=== PATIENT | female | born 1980 | race Caucasian/White ===

== ENCOUNTER 2024-08-17 08:52 | Emergency (ER) | payer OTHER ==
[2024-08-17 09:53] LABS: Specific Gravity 1.018 (1.005-1.030); Sqamous Epithelial <5 /HPF (None Seen); Urine Bacteria <20 /HPF (<20); Urine Bilirubin NEGATIVE (Negative); Urine Blood Trace (Negative); Urine Clarity Extremely Turbid (Clear); Urine Color Yellow (Yellow); Urine Culture Reflex Order REFLEXED; Urine Glucose NEGATIVE (Negative); Urine Ketones NEGATIVE (Negative); Urine Micro Reflex YN NO BILL MICROSCOPIC; Urine Mucus Slight /HPF (None Seen); Urine Nitrite NEGATIVE (Negative); Urine Protein 1+ (Negative); Urine Urobilinogen 2+ (Normal)
--- NOTE | 2024-08-17 11:30 | ER ---
Nurse's Notes [facility] Name: Beronica Beckwith Age: 44 yrs Sex: Female : 1980 Arrival Date: 08/17/2024 Time: 08:52 Bed [id number] Private MD: Diagnosis: Dysuria Presentation: 08/17 09:12 Chief complaint: Right flank pain, fever, headache, chills, and dysuria x 3 weeks. hb Coronavirus screen: At this time, the client does not indicate any symptoms associated with coronavirus-19. Ebola Screen: No symptoms or risks identified at this time. Initial Sepsis Screen: Does the patient meet any 2 criteria? No. Patient's initial sepsis screen is negative. Does the patient have a suspected source of infection? No. Patient's initial sepsis screen is negative. Risk Assessment: Do you want to hurt yourself or someone else? Patient reports no desire to harm self or others. Onset of symptoms was May 2024. 09:12 Method Of Arrival: Ambulatory hb 09:12 Acuity: ENRIKE 3 hb Historical: - Allergies: 09:14 Codeine; hb - PMHx: 09:14 Seizure; Hypothyroidism; hb - PSHx: 09:14 None; hb - Immunization history:: Adult Immunizations up to date. - Infectious Disease History:: Denies. - Social history:: Smoking status: Reported history of juuling and/or vaping. - Family history:: not pertinent. Screenin:15 [facility] ED Fall Risk Assessment (Adult) History of falling in the last 3 months, hb including since admission No falls in past 3 months (0 pts) Confusion or Disorientation No (0 pts) Intoxicated or Sedated No (0 pts) Impaired Gait No (0 pts) Mobility Assist Device Used No (0 pt) Altered Elimination No (0 pt) Score/Fall Risk Level 0 - 2 = Low Risk Oriented to surroundings, Maintained a safe environment, Educated pt \T\ family on fall prevention, incl call for assistance when getting out of bed. Abuse screen: Denies threats or abuse. Denies injuries from another. Nutritional screening: No deficits noted. Tuberculosis screening: No symptoms or risk factors identified. Assessment: 09:15 General: Appears in no apparent distress. Behavior is calm, cooperative. Pain: Pain hb currently is 3 out of 10 on a pain scale. Neuro: Level of Consciousness is awake, alert, obeys commands, Oriented to person, place, time, situation. Cardiovascular: Patient's skin is warm and dry. Respiratory: Respiratory effort is even, unlabored, Respiratory pattern is regular, symmetrical. : Reports dysuria. Vital Signs: 09:12 BP 128 / 68; Pulse 109; Resp 16; Temp 99.1(TE); Pulse Ox 100% on R/A; Weight 68.04 kg; hb Height 5 ft. 9 in. ; Pain 310; 09:12 Body Mass Index 22.15 (68.04 kg, 175.26 cm) hb 09:12 Pain Scale: Adult hb ED Course: 08:59 Patient arrived in ED. mr 08:59 Memo Velasquez MD is Attending Physician. rt 09:14 Triage completed. hb 09:30 No provider procedures requiring assistance completed. hb 09:30 Patient has correct armband on for positive identification. Provided Education on: hb tests, wait times. 09:44 PREGU Sent. hb 09:44 GC (Freddie/Chl) Probe URINE Sent. hb 09:44 UAM Sent. hb 09:44 Arm band placed on. hb 11:00 Patient did not have IV access during this emergency room visit. hb Administered Medications: No medications were administered Medication: 09:15 VIS not applicable for this client. hb Outcome: 11:30 Discharge ordered by . rt 11:30 Discharged to home ambulatory, hb 11:30 Condition: left before dispo 11:30 Discharge instructions given to left before dispo 11:31 Patient left the ED. hb Addendum: 08/20/2024 08:50 Addendum: Culture Results: attempted to contact pt at [phone], no answer, left b d message. 17:51 Addendum: Culture Results: Prescription called-in to pharmacy of choice. Called in h b Macrobid 100 mg BID x [address] Velasquez to patient's [facility] choice: [facility]. Signatures: Lili Chambers bd Moy, Ashley, Reg Reg mr KellerAraceli, RN RN Memo Sanchez MD MD rt Corrections: (The following items were deleted from the chart) 08/17 09:15 09:14 Allergies: No Known Allergies; hb hb
--- NOTE | 2024-08-17 11:30 | EDPHYS ---
Physician Documentation [facility] Name: Beronica Beckwith Age: 44 yrs Sex: Female : 1980 Arrival Date: 08/17/2024 Time: 08:52 Bed IW10 Private MD: ED Physician Memo Velasquez HPI: 08/17 10:15 This 44 yrs old Female presents to ER via Ambulatory with complaints of Urinary rt Problem, STD Exposure. 10:15 Patient presents to the ED with about 3 weeks of dysuria, with suprapubic pain rating rt to the left flank. Patient states that she wishes to be checked for STDs. Reports of fever, chills. Denies other acute complaints at this time, symptoms are moderate in severity, no other aggravating or alleviating factors.. Historical: - Allergies: 09:14 Codeine; hb - PMHx: :14 Seizure; Hypothyroidism; hb - PSHx: 09:14 None; hb - Immunization history:: Adult Immunizations up to date. - Infectious Disease History:: Denies. - Social history:: Smoking status: Reported history of juuling and/or vaping. - Family history:: not pertinent. ROS: 10:15 Constitutional: Negative for fever, chills, and weight loss, Cardiovascular: Negative rt for chest pain, palpitations, and edema, Respiratory: Negative for shortness of breath, cough, wheezing, and pleuritic chest pain, MS/Extremity: Negative for injury and deformity, Skin: Negative for injury, rash, and discoloration, 10:15 Abdomen/GI: Positive for abdominal pain, nausea, 10:15 Back: Positive for flank pain, Negative for injury or acute deformity, Exam: 10:15 Constitutional: This is a well developed, well nourished patient who is awake, alert, rt and in no acute distress. Head/Face: Normocephalic, atraumatic. Chest/axilla: Normal chest wall appearance and motion. Nontender with no deformity. No lesions are appreciated. Cardiovascular: Regular rate and rhythm with a normal S1 and S2. No gallops, murmurs, or rubs. Normal PMI, no JVD. No pulse deficits. Respiratory: Lungs have equal breath sounds bilaterally, clear to auscultation and percussion. No rales, rhonchi or wheezes noted. No increased work of breathing, no retractions or nasal flaring. Skin: Warm, dry with normal turgor. Normal color with no rashes, no lesions, and no evidence of cellulitis. MS/ Extremity: Pulses equal, no cyanosis. Neurovascular intact. Full, normal range of motion. 10:15 Abdomen/GI: Mild suprapubic tenderness, no rebound, guarding, distention, Vital Signs: 09:12 BP 128 / 68; Pulse 109; Resp 16; Temp 99.1(TE); Pulse Ox 100% on R/A; Weight 68.04 kg; hb Height 5 ft. 9 in. ; Pain 01/07; 09:12 Body Mass Index 22.15 (68.04 kg, 175.26 cm) hb 09:12 Pain Scale: Adult hb MDM: 09:11 Medical Screening Exam initiated rt 11:46 Differential Diagnosis UTI, STI, pyelonephritis. Data reviewed: vital signs, nurses rt notes. ED course: Patient additionally noted to be tachycardic, urinalysis, labs were ordered. Patient left from the waiting room without informing staff prior to any workup being done.. 08/17 09:15 Order name: UAM; Complete Time: 10:13 rt 08/17 09:15 Order name: GC (Freddie/Chl) Probe URINE rt 08/17 09:15 Order name: PREGU; Complete Time: 10:13 rt 08/17 09:57 Order name: Urine Culture EDMS Administered Medications: No medications were administered Disposition Summary: 08/17/24 11:30 Discharge Ordered Notes: Location: Home rt Condition: Undetermined rt Diagnosis - Dysuria rt Followup: rt - With: Private Physician - When: 2 - 3 days - Reason: Forms: - Medication Reconciliation Form rt - Antibiotic Education rt - Prescription Opioid Use rt - Patient Portal Instructions rt - Leadership Thank You Letter rt Signatures: Dispatcher [employer] EDMS Araceli Keller RN RN Memo Velasquez MD MD rt Corrections: (The following items were deleted from the chart) 09:15 09:14 Allergies: No Known Allergies; hb hb
[2024-08-17 12:05] VITALS: BP 128/68; TEMP 99.1; O2SAT 100
[2024-08-19 23:27] LABS: C.trachomatis RNA,TMA Not Detected (Not Detected); N.gonorrhoeae RNA,TMA Not Detected (Not Detected)
== END 2024-08-17 11:31 | disposition home or self-care (01) ==
LOC: ER 08:52
DX: R30.0 Dysuria (principal)
CPT/HCPCS: 81001; 81025; 87077; 87086; 87088; 87186; 87490; 87590; 99283